=== PATIENT | female | born 2005 | race Two or more races ===

== ENCOUNTER → 2024-04-21 | Outpatient (CLI) | payer OTHER ==
[2024-04-21 11:53] LABS: Basophils # (auto) 0 10 ^3/uL (0-0.2); Eosinophils # (auto) 0.1 10 ^3/uL (0-0.8); Lymphocytes % (auto) 24.2 % (10.0-50.0); Platelet Count (auto) 187 10^3/uL (140-450)
[2024-04-21 11:55] LABS: Basophils % (auto) 0.2 % (0.0-2.0); Eosinophils % (auto) 0.6 % (0.0-7.0); Hematocrit 32.3 % (36.0-46.0); Hemoglobin 10.8 g/dL (12.2-16.2); Mean Corpuscular Hemoglobin 27.2 pg (28.0-32.0); Mean Corpuscular Hgb Conc. 33.3 g/dL (32.0-36.0); Mean Corpuscular Volume 81.8 fL (80.0-100.0); Monocytes # (auto) 0.4 10 ^3/uL (0-1.3); Monocytes % (auto) 4.7 % (0.0-12.0); Neutrophils # (auto) 5.9 10 ^3/uL (1.6-8.6); Neutrophils % (auto) 70.3 % (37.0-80.0); Nucleated Red Blood Cells % 0.1 %; Red Blood Cells 3.95 10^6/uL (4.0-5.20); Red Cell Distribution Width 14.6 % (11.8-14.3); White Blood Cell 8.3 10^3/uL (4.4-10.8)
[2024-04-21 12:16] LABS: Amphetamine Screen, Urine Neg (NEGATIVE); Barbiturate Scree,Urine Neg (NEGATIVE); Benzodiazephine Screen, Urine Neg (NEGATIVE)
[2024-04-21 12:17] LABS: Cocaine Screen, Urine Neg (NEGATIVE)
[2024-04-21 12:18] LABS: Cannabinoid Screen, Urine Pos (NEGATIVE); Opiate Scree,Urine Neg (NEGATIVE); Phencyclidine Screen, Urine Neg (NEGATIVE)
[2024-04-22 07:06] LABS: RPR Non Reactive (Non Reactive)
[2024-04-22 17:06] LABS: Chlamydia Trachomatis, NAA Negative (Negative); Neisseria gonorrhoeae, NAA Negative (Negative)
== END | disposition home or self-care (01) ==
LOC: LAB 11:09
PROVIDERS: ATTEND Obstetrics & Gynecology
DX: Z11.3 Encounter for screening for infections with a predominantly sexual mode of transmission (principal); N39.0 Urinary tract infection, site not specified
CPT/HCPCS: 36415; 80307; 83036; 84144; 84702; 85025; 86592; 86703; 86762; 86850; 86900; 86901; 87086; 87340

== ENCOUNTER → 2024-06-09 | Outpatient (CLI) | payer OTHER ==
[2024-06-09 08:43] LABS: Eosinophils # (auto) 0.3 10 ^3/uL (0-0.8); Eosinophils % (auto) 2.4 % (0.0-7.0); Hemoglobin 10.5 g/dL (12.2-16.2); Mean Corpuscular Volume 77.3 fL (80.0-100.0); Monocytes # (auto) 0.8 10 ^3/uL (0-1.3); Neutrophils # (auto) 8.4 10 ^3/uL (1.6-8.6); Nucleated Red Blood Cells % 0.1 %
[2024-06-09 08:44] LABS: Basophils # (auto) 0.1 10 ^3/uL (0-0.2); Basophils % (auto) 0.4 % (0.0-2.0); Hematocrit 32.6 % (36.0-46.0); Lymphocytes # (auto) 2.9 10 ^3/uL (0.4-5.4); Lymphocytes % (auto) 23.1 % (10.0-50.0); Mean Corpuscular Hemoglobin 24.9 pg (28.0-32.0); Mean Corpuscular Hgb Conc. 32.2 g/dL (32.0-36.0); Monocytes % (auto) 6.4 % (0.0-12.0); Neutrophils % (auto) 67.7 % (37.0-80.0); Platelet Count (auto) 163 10^3/uL (140-450); Red Blood Cells 4.22 10^6/uL (4.0-5.20); Red Cell Distribution Width 15.4 % (11.8-14.3); White Blood Cell 12.4 10^3/uL (4.4-10.8)
== END | disposition home or self-care (01) ==
LOC: LAB 07:50
PROVIDERS: ATTEND Obstetrics & Gynecology
DX: Z34.80 Encounter for supervision of other normal pregnancy, unspecified trimester (principal); Z3A.00 Weeks of gestation of pregnancy not specified
CPT/HCPCS: 36415; 82951; 83036; 85025

== ENCOUNTER → 2024-06-13 | Outpatient (CLI) | payer OTHER ==
[~2024-06-13] MED LIST: PREN-96 PO
[2024-06-13 11:23] LABS: Hemoglobin 10.7 g/dL (12.2-16.2); Mean Corpuscular Hemoglobin 25.2 pg (28.0-32.0)
[2024-06-13 11:24] LABS: Hematocrit 32.7 % (36.0-46.0); Mean Corpuscular Hgb Conc. 32.6 g/dL (32.0-36.0); Mean Corpuscular Volume 77.3 fL (80.0-100.0); Platelet Count (auto) 176 10^3/uL (140-450); Red Blood Cells 4.24 10^6/uL (4.0-5.20); Red Cell Distribution Width 15.6 % (11.8-14.3)
[2024-06-13 11:41] LABS: Band Neutrophils % (manual) 0; Basophils % (manual) 0 (0.0-2.0); Blast Cells 0; Myelocytes % 0; Promyelocytes % 0; Reactive Lymphocytes 0
[2024-06-13 12:23] LABS: Eosinophils % (manual) 1 (0-7); Lymphocytes % (manual) 20 (10.0-50.0); Metamyelocytes % 2; Monocytes % (manual) 6 (0-12); Platelet Estimate Adequate
[2024-06-14 07:06] LABS: RPR Non Reactive (Non Reactive)
[2024-06-15 01:06] LABS: Chlamydia Trachomatis, NAA Negative (Negative); Neisseria gonorrhoeae, NAA Negative (Negative)
== END | disposition home or self-care (01) ==
LOC: LAB 11:07
PROVIDERS: ATTEND Obstetrics & Gynecology
DX: Z34.00 Encounter for supervision of normal first pregnancy, unspecified trimester (principal); Z72.51 High risk heterosexual behavior; Z3A.00 Weeks of gestation of pregnancy not specified
CPT/HCPCS: 36415; 85007; 85027; 86592

== ENCOUNTER 2024-06-20 10:30 | Observation (INO) | payer OTHER ==
[2024-06-20] MEDS ORDERED: PREN-96 PO (10:45)
--- NOTE | 2024-06-20 11:47 | DVH ---
Procedure: US BIOPHYSICAL PROFILE 06/20/2024 11:09 AM Indication: GDM Comparison: None Technique: Sonogram of gravid uterus utilizing grayscale and color techniques. FINDINGS: Single living intrauterine gestation. Presentation: Cephalic Placenta: Anterior heart rate: 130 bpm MEENA: 16.9 cm, DVP: 5.5 cm Maternal cervix: Not visualized Biophysical Profile: breathing score: 2 movement score: 2 tone: 2 Quantitative MEENA score: 2 Total score: 8/8 IMPRESSION: 1. Single living as above. 2. Biophysical profile score: 8/8.
--- NOTE | 2024-06-20 17:49 | DVHDS2 ---
Physician Discharge Progress N Final Diagnosis: testing for GDM, A2 Operations or Procedures: Operations or Procedures 18yo IUP@36.1wks, +FM, denies UCs/VB/LOF/CAUSEY/vision changes/RUQ pain VSS NST reactive FKC/PTL/PreE precautions reviewed Other Interventions Other Interventions [place] [address] Ph: [phone] DIAGNOSTIC IMAGING Diagnostic Imaging Report : [id number] Signed PATIENT: ALMA ROSA ZAYAS ACCT: [id number] UNIT: [id number] : 2005 LOC: [facility] ROOM / BED: TRIAGE1 / A AGE / SEX: 18 / F ADM STATUS: ADM IN SERVICE 104 ORDERING PHYSICIAN: MICHELET BUCHANAN CNM PROCEDURE(s): BPP - BIOPHYSICAL PROFILE REASON: GDM ORDER NUMBER(s): [id number], ACCESSION NUMBER(s): [id number] Procedure: US BIOPHYSICAL PROFILE 06/20/2024 11:09 AM Indication: GDM Comparison: None Technique: Sonogram of gravid uterus utilizing grayscale and color techniques. FINDINGS: Single living intrauterine gestation. Presentation: Cephalic Placenta: Anterior heart rate: 130 bpm MEENA: 16.9 cm, DVP: 5.5 cm Maternal cervix: Not visualized Biophysical Profile: breathing score: 2 movement score: 2 tone: 2 Quantitative MEENA score: 2 Total score: 8/8 IMPRESSION: 1. Single living as above. 2. Biophysical profile score: 8/8. ATED BY: CLARA WU MD DICTATED DATE/TIME: 06/20/24 1145 SIGNED BY: CLARA WU MD SIGNED DATE/TIME: 06/20/24 114 CC: Condition on Discharge: Stable Disposition: Home Discharge Instructions: Diet: Consistent carbohydrate Activity: No Restrictions, As Tolerated Medications: see med list Follow Up Care: Specialist: f/u in 3 days Discharge Statement: "Patient was advised to return to the ER or call 911 if any headaches, dizziness, shortness of breath, chest pain, abdominal pain, bleeding, fevers, or worsening of medical condition. Patient was counseled about treatment plan, medications, possible side effects, patientverbalized understanding. All questions were answered to the best of my ability. This discharge took greater then 30 minutes in planning, reviewing documentation, counseling the patient, and discussing with other team members." Visit Coding OBGYN Date of Service: Jun 20, 2024 Billing Provider: MICHELET BUCHANAN CNM SMEARER Common Visit Codes: [id number] OBS CARE (HIGH) MICHELET BUCHANAN CNM Jun 20, 2024 17:49
== END 2024-06-20 12:47 | disposition home or self-care (01) ==
LOC: LDRP 10:30 → UNDOADMOB 10:30 → LDRP 10:44 → UNDODISOB 12:47
PROVIDERS: ADMIT Obstetrics & Gynecology; ATTEND Obstetrics & Gynecology
DX: O24.419 Gestational diabetes mellitus in pregnancy, unspecified control (principal); Z98.890 Other specified postprocedural states; Z79.899 Other long term (current) drug therapy; Z3A.36 36 weeks gestation of pregnancy
CPT/HCPCS: 59025; 76818; 81002; 82948; 82962; 94760; G0378

== ENCOUNTER 2024-06-23 10:07 | Observation (INO) | payer OTHER ==
--- NOTE | 2024-06-23 11:04 | DVH ---
BIOPHYSICAL PROFILE HISTORY: GDMA2 TECHNIQUE: Multiple transabdominal real-time grayscale sonographic images through the gravid uterus of the fetus with duplex Doppler color flow and M-mode spectral analysis FINDINGS: BIOPHYSICAL PROFILE: breathing score: 2 movement score: 2 tone score: 2 Quantitative MEENA score: 2 (MEENA: 17.2 Cm.) Total score: 8 The cervix not well visualized. Single live fetus in vertex presentation. heart rate 131 beats per minute. Anterior placenta without previa or abruption IMPRESSION: Biophysical profile score: 8
[2024-06-23] MEDS ORDERED: ACYC200C22 PO (11:19)
[2024-06-23] MEDS ORDERED: METF-370 PO (11:19)
--- NOTE | 2024-06-23 15:17 | DVHDS2 ---
Physician Discharge Progress N Final Diagnosis: GDMA2 Operations or Procedures: Operations or Procedures NST/BPP/MEENA Condition on Discharge: Stable Disposition: Home Discharge Instructions: Diet: Consistent carbohydrate Activity: No Restrictions, As Tolerated Follow Up/Referral: as scheduled Medications: No new meds Follow Up Care: Discharge Statement: "Patient was advised to return to the ER or call 911 if any headaches, dizziness, shortness of breath, chest pain, abdominal pain, bleeding, fevers, or worsening of medical condition. Patient was counseled about treatment plan, medications, possible side effects, patientverbalized understanding. All questions were answered to the best of my ability. This discharge took greater then 30 minutes in planning, reviewing documentation, counseling the patient, and discussing with other team members." Visit Coding OBGYN Date of Service: Jun 23, 2024 Billing Provider: SEEMA HAWKINS DO PUBLIC RELATIONS SENIOR ASSOCIATE Common Visit Codes: [id number]-WPU/OBS SAME DATE (MOD) PUBLIC RELATIONS SENIOR ASSOCIATE Procedure Codes: 71647-95- NON-STRESS TEST SEEMA HAWKINS DO Jun 23, 2024 15:17
== END 2024-06-23 11:27 | disposition home or self-care (01) ==
LOC: LDRP 10:07
PROVIDERS: ADMIT Obstetrics & Gynecology; ATTEND Obstetrics & Gynecology
DX: O24.419 Gestational diabetes mellitus in pregnancy, unspecified control (principal); Z3A.36 36 weeks gestation of pregnancy; Z79.899 Other long term (current) drug therapy; Z98.890 Other specified postprocedural states
CPT/HCPCS: 59025; 76818; 81002; 82948; 82962; 94760; G0378

== ENCOUNTER 2024-06-27 14:10 | Observation (INO) | payer OTHER ==
[~2024-06-27 14:10] MED LIST changes: +ACYC200C22 PO; +METF-370 PO
--- NOTE | 2024-06-27 15:37 | DVH ---
CLINICAL HISTORY: Gestational diabetes. COMPARISON: Prior BPP exam dated 06/23/2024. TECHNIQUE: biophysical profile was performed. Transabdominal sonographic images of the fetus we re obtained. FINDINGS: The fetus is in cephalic position. heart rate measures 146 BPM. Amniotic fluid index measures 18.1 cm. The placenta is anterior in position. BPP profile is an overall score of 8/8, with 2/2 points for breathing, with at least one episode of breathing over a 30 second duration during a 30 minute observation, 2/2 points for m ovements, with 3 or more discrete body or limb movements, 2/2 points for tone, with one or more episodes of extremity extension with return to flexion, or opening and closing of hand, and 2/ 2 points for amniotic fluid, with at least 1 pocket of amniotic fluid that measures 2 cm in 2 perpend icular planes. IMPRESSION: BPP score of 8/8.
--- NOTE | 2024-06-27 20:27 | DVHDS2 ---
Physician Discharge Progress N Final Diagnosis: testing for GDM, A2 Operations or Procedures: Operations or Procedures 18yo IUP@37.1WKS, +FM, denies UCs/LOF/VB VSS NST reactive FKC/labor precautions reviewed Dr. Antoine consulted, agrees with POC. Other Interventions Other Interventions [address] [address] Ph: [phone] DIAGNOSTIC IMAGING Diagnostic Imaging Report : [id number] Signed PATIENT: ALMA ROSA ZAYAS ACCT: [id number] UNIT: [id number] : 2005 LOC: [facility] ROOM / BED: TRIAGE2 / A AGE / SEX: 18 / F ADM STATUS: DIS IN SERVICE 142 ORDERING PHYSICIAN: MICHELET BUCHANAN CNM PROCEDURE(s): BPP - BIOPHYSICAL PROFILE REASON: GDMA1 ORDER NUMBER(s): [id number], ACCESSION NUMBER(s): [id number] CLINICAL HISTORY: Gestational diabetes. COMPARISON: Prior BPP exam dated 06/23/2024. TECHNIQUE: biophysical profile was performed. Transabdominal sonographic images of the fetus were obtained. FINDINGS: The fetus is in cephalic position. heart rate measures 146 BPM. Amniotic fluid index measures 18.1 cm. The placenta is anterior in position. BPP profile is an overall score of 8/8, with 2/2 points for breathing, with at least one episode of breathing over a 30 second duration during a 30 minute observation, 2/2 points for movements, with 3 or more discrete body or limb movements, 2/2 points for tone, with one or more episodes of extremity extension with return to flexion, or opening and closing of hand, and 2/2 points for amniotic fluid, with at least 1 pocket of amniotic fluid that measures 2 cm in 2 perpendicular planes. IMPRESSION: BPP score of 8/8. ATED BY: JANICE RAMESH DO DICTATED DATE/TIME: 06/27/241533 SIGNED BY: JANICE RAMESH DO SIGNED DATE/TIME: 06/27/241533 CC: Condition on Discharge: Stable Disposition: Home Discharge Instructions: Diet: Consistent carbohydrate Activity: No Restrictions, As Tolerated Medications: see med list Follow Up Care: Specialist: f/u in 3 days Discharge Statement: "Patient was advised to return to the ER or call 911 if any headaches, dizziness, shortness of breath, chest pain, abdominal pain, bleeding, fevers, or worsening of medical condition. Patient was counseled about treatment plan, medications, possible side effects, patientverbalized understanding. All questions were answered to the best of my ability. This discharge took greater then 30 minutes in planning, reviewing documentation, counseling the patient, and discussing with other team members." Visit Coding OBGYN Date of Service: Jun 27, 2024 Billing Provider: MICHELET BUCHANAN CNM CIRCULAR STUFFER Common Visit Codes: [id number] OBS CARE (HIGH) MICHELET BUCHANAN CNM Jun 27, 2024 20:27
== END 2024-06-27 15:26 | disposition home or self-care (01) ==
LOC: UNDOADMOB 14:10 → LDRP 14:10 → UNDODISOB 15:26
PROVIDERS: ADMIT Obstetrics & Gynecology; ATTEND Obstetrics & Gynecology
DX: O24.419 Gestational diabetes mellitus in pregnancy, unspecified control (principal); Z3A.37 37 weeks gestation of pregnancy; Z98.890 Other specified postprocedural states; Z79.899 Other long term (current) drug therapy
CPT/HCPCS: 59025; 76818; 81002; 82948; 82962; 94760; G0378

== ENCOUNTER 2024-06-30 07:00 | Observation (INO) | payer OTHER ==
--- NOTE | 2024-06-30 15:29 | DVH ---
Procedure: US BIOPHYSICAL PROFILE 06/30/2024 02:21 PM Indication: gdma2 Comparison: US BIOPHYSICAL PROFILE on DOS: 06/27/24, US BIOPHYSICAL PROFILE on DOS: 06/23/24, US BIOPHYS ICAL PROFILE on DOS: 06/20/24 Technique: Sonogram of gravid uterus utilizing grayscale and color techniques. FINDINGS: Single living intrauterine gestation. Presentation: Cephalic Placenta: Anterior heart rate: 140 bpm MEENA: 19.1 cm, DVP: 7.8 cm Maternal cervix: Not visualized Biophysical Profile: breathing score: 2 movement score: 2 tone: 2 Quantitative MEENA score: 2 Total score: 8/8 IMPRESSION: 1. Single living as above. 2. Biophysical profile score: 8/8.
--- NOTE | 2024-07-07 10:59 | DVHDS2 ---
Physician Discharge Progress N Final Diagnosis: gdm Operations or Procedures: Operations or Procedures nst,sono Condition on Discharge: Good Disposition: Home Discharge Instructions: Diet: Regular, Consistent carbohydrate Activity: No Restrictions, As Tolerated Medications: na Follow Up Care: Specialist: 3d Discharge Statement: "Patient was advised to return to the ER or call 911 if any headaches, dizziness, shortness of breath, chest pain, abdominal pain, bleeding, fevers, or worsening of medical condition. Patient was counseled about treatment plan, medications, possible side effects, patientverbalized understanding. All questions were answered to the best of my ability. This discharge took greater then 30 minutes in planning, reviewing document ation, counseling the patient, and discussing with other team members." Visit Coding OBGYN Date of Service: Jun 30, 2024 Billing Provider: HALEY TIPTON DO ELECTROMECHANICAL TECHNICIAN Common Visit Codes: [id number] INP/OBS CARE(MOD) ELECTROMECHANICAL TECHNICIAN Procedure Codes: 97155-37- NON-STRESS TEST HALEY TIPTON DO Jul 07, 2024 10:59
== END 2024-06-30 15:27 | disposition home or self-care (01) ==
LOC: LDRP 14:01
PROVIDERS: ADMIT Obstetrics & Gynecology; ATTEND Obstetrics & Gynecology
DX: O24.419 Gestational diabetes mellitus in pregnancy, unspecified control (principal); Z3A.37 37 weeks gestation of pregnancy; Z79.899 Other long term (current) drug therapy
CPT/HCPCS: 59025; 76818; 81002; 82948; 82962; 94760; G0378

== ENCOUNTER 2024-07-04 14:55 | Observation (INO) | payer OTHER ==
--- NOTE | 2024-07-04 15:52 | DVH ---
BIOPHYSICAL PROFILE HISTORY: gdma2 TECHNIQUE: Multiple transabdominal real-time grayscale sonographic images through the gravid uterus of the fetus with duplex Doppler color flow and M-mode spectral analysis FINDINGS: BIOPHYSICAL PROFILE: breathing score: 2 movement score: 2 tone score: 2 Quantitative MEENA score: 2 (MEENA: 15.8 Cm.) Total score: 8/8 The cervix not measured Single live fetus in cephalic presentation. heart rate 144 beats per minute. Anterior Grade 3 placenta without previa or abruption Single live fetus at 30 weeks 1 day Biophysical profile score 8/8 corresponding to an DIAN of 07/17/2024 Estimated weight not measured g IMPRESSION: 1. Biophysical profile score: 8/8
--- NOTE | 2024-07-04 19:57 | DVHDS2 ---
Physician Discharge Progress N Final Diagnosis: testing for GDM, A2 Operations or Procedures: Operations or Procedures 18yo IUP@38.1wks, +FM, denies UCs/LOF/VB VSS NST reactive BPP wnl FKC/Labor precautions reviewed Condition on Discharge: Stable Disposition: Home Discharge Instructions: Diet: Consistent carbohydrate Activity: No Restrictions, As Tolerated Medications: see med list Follow Up Care: Specialist: f/u in 3 days Discharge Statement: "Patient was advised to return to the ER or call 911 if any headaches, dizziness, shortness of breath, chest pain, abdominal pain, bleeding, fevers, or worsening of medical condition. Patient was counseled about treatment plan, medications, possible side effects, patientverbalized understanding. All questions were answered to the best of my ability. This discharge took greater then 30 minutes in planning, reviewing doc umentation, counseling the patient, and discussing with other team members." Visit Coding OBGYN Date of Service: Jul 04, 2024 Billing Provider: MICHELET BUCHANAN CNM ECOTHERAPIST Common Visit Codes: [id number] OBS CARE (HIGH) ECOTHERAPIST Procedure Codes: 93564-69- NON-STRESS TEST MICHELET BUCHANAN CNM Jul 04, 2024 19:57
== END 2024-07-04 16:16 | disposition home or self-care (01) ==
LOC: LDRP 14:55
PROVIDERS: ADMIT Obstetrics & Gynecology; ATTEND Obstetrics & Gynecology
DX: O24.419 Gestational diabetes mellitus in pregnancy, unspecified control (principal); Z98.890 Other specified postprocedural states; Z79.899 Other long term (current) drug therapy; Z3A.38 38 weeks gestation of pregnancy
CPT/HCPCS: 59025; 76818; 81002; 82948; 82962; 94760; G0378

== ENCOUNTER 2024-07-07 06:55 | Observation (INO) | payer OTHER ==
--- NOTE | 2024-07-07 10:11 | DVH ---
CLINICAL HISTORY: Gestational diabetes. COMPARISON: US BIOPHYSICAL PROFILE on DOS: 07/04/24, US BIOPHYSICAL PROFILE on DOS: 06/30/24, US BIOPHY SICAL PROFILE on DOS: 06/27/24 TECHNIQUE: biophysical profile was performed. Transabdominal sonographic images of the fetus we re obtained. FINDINGS: The fetus is in cephalic position. heart rate measures 130 BPM. Amniotic fluid index measures 18.3 cm. The placenta is anterior in position. BPP profile is an overall score of 8/8, with 2/2 points for breathing, with at least one episode of breathing over a 30 second duration during a 30 minute observation, 2/2 points for m ovements, with 3 or more discrete body or limb movements, 2/2 points for tone, with one or more episodes of extremity extension with return to flexion, or opening and closing of hand, and 2/ 2 points for amniotic fluid, with at least 1 pocket of amniotic fluid that measures 2 cm in 2 perpend icular planes. IMPRESSION: BPP score of 8/8.
--- NOTE | 2024-07-07 11:01 | DVHDS2 ---
Physician Discharge Progress N Final Diagnosis: gdm 38wks Operations or Procedures: Operations or Procedures simeon cao 38wks Condition on Discharge: Good Disposition: Home Discharge Instructions: Diet: Consistent carbohydrate Activity: Light activity Medications: na Follow Up Care: Specialist: 5d Discharge Statement: "Patient was advised to return to the ER or call 911 if any headaches, dizziness, shortness of breath, chest pain, abdominal pain, bleeding, fevers, or worsening of medical condition. Patient was counseled about treatment plan, medications, possible side effects, patientverbalized understanding. All questions were answered to the best of my ability. This discharge took greater then 30 minutes in planning, reviewing documentation, counseling the patient, and discussing with other team members." Visit Coding OBGYN Date of Service: Jul 07, 2024 Billing Provider: HALEY TIPTON DO TAG PRESS OPERATOR Common Visit Codes: [id number] INP/OBS CARE(MOD), 03633-LZF/OBS SAME DATE (MOD) HALEY TIPTON DO Jul 07, 2024 11:01
== END 2024-07-07 10:32 | disposition home or self-care (01) ==
LOC: LDRP 09:13
PROVIDERS: ADMIT Obstetrics & Gynecology; ATTEND Obstetrics & Gynecology
DX: O24.419 Gestational diabetes mellitus in pregnancy, unspecified control (principal); Z3A.38 38 weeks gestation of pregnancy; Z79.899 Other long term (current) drug therapy; Z98.890 Other specified postprocedural states
CPT/HCPCS: 59025; 76818; 81002; 82948; 82962; 94760; G0378

== ENCOUNTER 2024-07-11 06:50 | Observation (INO) | payer OTHER ==
--- NOTE | 2024-07-11 13:44 | DVH ---
BIOPHYSICAL PROFILE HISTORY: GDMA1 Comparison Study: 07/07/2024 TECHNIQUE: Multiple real-time grayscale sonographic images through the gravid uterus of the fetus wi th duplex Doppler color flow and M-mode spectral analysis FINDINGS: BIOPHYSICAL PROFILE: breathing score: 2 movement score: 2 tone score: 2 Quantitative MEENA score: 2 (MEENA: 14.8 Cm.) Total score: 8 The cervix is not visualized Single live fetus in cephalic presentation. heart rate 138 beats per minute. Anterior placenta without previa or abruption IMPRESSION: Biophysical profile score: 8
--- NOTE | 2024-07-11 19:59 | DVHDS2 ---
Physician Discharge Progress N Final Diagnosis: testing for GDM, A1/A2 Operations or Procedures: Operations or Procedures 18yo IUP@39.1wks, +FM, denies UCs/LOF/VB/CAUSEY/vision changes/RUQ pain NST reactive (verified by 2 RNs) VSS, see chart SVE by RN: /-3 FKC/PTL/PreE precautions reviewed Dr. Antoine consulted, plan is to scheduled pt for IOL tonight for GDM. Other Interventions Other Interventions [place] [address] Ph: [phone] DIAGNOSTIC IMAGING Diagnostic Imaging Report : [id number] Signed PATIENT: ALMA ROSA ZAYAS ACCT: [id number] UNIT: [id number] : 2005 LOC: [facility] ROOM / BED: TRIAGE3 / A AGE / SEX: 18 / F ADM STATUS: ADM IN SERVICE 1235 ORDERING PHYSICIAN: MICHELET BUCHANAN CNM PROCEDURE(s): BPP - BIOPHYSICAL PROFILE REASON: GDMA1 ORDER NUMBER(s): [id number], ACCESSION NUMBER(s): [id number] BIOPHYSICAL PROFILE HISTORY: GDMA1 Comparison Study: 07/07/2024 TECHNIQUE: Multiple real-time grayscale sonographic images through the gravid uterus of the fetus with duplex Doppler color flow and M-mode spectral analysis FINDINGS: BIOPHYSICAL PROFILE: breathing score: 2 movement score: 2 tone score: 2 Quantitative MEENA score: 2 (MEENA: 14.8 Cm.) Total score: 8 The cervix is not visualized Single live fetus in cephalic presentation. heart rate 138 beats per minute. Anterior placenta without previa or abruption IMPRESSION: Biophysical profile score: 8 ATED BY: KEITH PARSONS MD DICTATED DATE/TIME: 07/11/24 134 SIGNED BY: KEITH PARSONS MD SIGNED DATE/TIME: 07/11/24 134 CC: Condition on Discharge: Stable Disposition: Home Discharge Instructions: Diet: Consistent carbohydrate Activity: No Restrictions, As Tolerated Follow Up/Referral: as scheduled. Medications: See med list Follow Up Care: Specialist: f/u tonight for IOL Discharge Statement: "Patient was advised to return to the ER or call 911 if any headaches, dizzine ss, shortness of breath, chest pain, abdominal pain, bleeding, fevers, or worsening of medical condition. Patient was counseled about treatment plan, medications, possible side effects, patientverbalized understanding. All questions were answered to the best of my ability. This discharge took greater then 30 minutes in planning, reviewing documentation, counseling the patient, and discussing with other team members." Visit Coding OBGYN Date of Service: Jul 11, 2024 Billing Provider: MICHELET BUCHANAN CNM [place] BAILIFF Common Visit Codes: [id number] OBS CARE (HIGH) MICHELET BUCHANAN CNM Jul 11, 2024 19:59
== END 2024-07-11 14:06 | disposition home or self-care (01) ==
LOC: LDRP 12:08
PROVIDERS: ADMIT Obstetrics & Gynecology; ATTEND Obstetrics & Gynecology
DX: O24.419 Gestational diabetes mellitus in pregnancy, unspecified control (principal); Z3A.39 39 weeks gestation of pregnancy; Z79.899 Other long term (current) drug therapy
CPT/HCPCS: 76818; 81002; 82948; 82962; 94760; G0378; 59025; 76819

== ENCOUNTER 2024-07-11 21:07 | Inpatient (IN) | payer OTHER ==
[~2024-07-11] VITALS: Ht 157.5 cm; Wt 101.2 kg
[2024-07-11] MEDS ORDERED: NALBUPHINE HCL 10 MG/1ml INJECTION IV PRN (21:30)
[2024-07-11] MEDS ORDERED: LIDOCAINE 2%HCL (LOCAL ANESTH.) INJ 20ML MDV IJ PRN (21:30)
[2024-07-11 22:34] LABS: Eosinophils # (auto) 0.1 10 ^3/uL (0-0.8); Lymphocytes # (auto) 3.3 10 ^3/uL (0.4-5.4); Mean Corpuscular Hemoglobin 23.9 pg (28.0-32.0); Mean Corpuscular Hgb Conc. 32.4 g/dL (32.0-36.0); Mean Corpuscular Volume 73.7 fL (80.0-100.0); Monocytes # (auto) 0.6 10 ^3/uL (0-1.3); Neutrophils # (auto) 7.3 10 ^3/uL (1.6-8.6); Red Cell Distribution Width 16.6 % (11.8-14.3)
[2024-07-11 22:35] LABS: Basophils # (auto) 0 10 ^3/uL (0-0.2); Basophils % (auto) 0.4 % (0.0-2.0); Eosinophils % (auto) 0.5 % (0.0-7.0); Hemoglobin 9.4 g/dL (12.2-16.2); Lymphocytes % (auto) 29.4 % (10.0-50.0); Monocytes % (auto) 5.7 % (0.0-12.0); Platelet Count (auto) 190 10^3/uL (140-450); Red Blood Cells 3.94 10^6/uL (4.0-5.20); White Blood Cell 11.4 10^3/uL (4.4-10.8)
[2024-07-11 22:48] LABS: INR 0.92 (0.9-1.15); Prothrombin Time 9.8 sec (9.3-11.8)
[2024-07-11] MEDS ORDERED: miSOPROStol 50 MCG per PRE-CUT 1/2 TAB PO PRN (23:00)
[2024-07-11 23:05] LABS: Albumin 3.9 g/dL (3.2-4.8); Anion Gap 9 (5-15); BUN/Creatinine Ratio 16.4 (10.0-20.0); Bilirubin, Total 0.4 mg/dL (0.2-1.0); Blood Urea Nitrogen 11 mg/dL (9-23); Calcium 9.2 mg/dL (8.7-10.4); Carbon Dioxide 23 mmol/L (20-31); Chloride 106 mmol/L (98-107); Glucose 88 mg/dL (74-106); Sodium 138 mmol/L (136-145); Total Protein 6.1 g/dL (5.7-8.2)
[2024-07-11 23:06] LABS: Alanine Aminotransferase < 9 U/L (7-40); Alkaline Phosphatase 171 U/L (46-116); Aspartate Aminotransferase < 8 U/L (13-40); Potassium 3.5 mmol/L (3.5-5.1)
[2024-07-11] MEDS: LACTATED RINGER'S 1,000 ML IV SCH (23:06)
[2024-07-11 23:46] LABS: Cannabinoid Screen, Urine Pos (NEGATIVE)
[2024-07-11 23:47] LABS: Urine Bacteria FEW /hpf (None Seen); Urine Blood Negative /uL (Negative); Urine Clarity Clear (Clear); Urine Color Yellow (Yellow); Urine Mucus FEW (None Seen); Urine Protein, UAD 1+ (Negative); Urine Squamous Epithelial Cell MOD /hpf (<5); Urine Urobilinogen 2 mg/dL (Negative); Urine WBC 2 /HPF (0-5); Urine pH 6.5 (5.0-9.0)
[2024-07-11 23:49] LABS: Amphetamine Screen, Urine Neg (NEGATIVE); Barbiturate Scree,Urine Neg (NEGATIVE); Benzodiazephine Screen, Urine Neg (NEGATIVE); Cocaine Screen, Urine Neg (NEGATIVE); Opiate Scree,Urine Neg (NEGATIVE); Phencyclidine Screen, Urine Neg (NEGATIVE)
--- NOTE | 2024-07-11 23:49 | DVHHP2 ---
OB CC & HPI Date Date of Admission: Jul 11, 2024 Patient Identification: EDC: Jul 17, 2024 EGA: 39.1wks Chief Complaints: Reason for admission: induction of labor (GDM) History of Present Complaints 18yo IUP@39.1wks presents for scheduled IOL for GDMA2/A1. Pt reports being prescribed metformin making her GDMA2 but never took the meds. Then managed BG with diet/exercise so was told to not take metformin. Denies UCs/LOF/VB/CAUSEY/vision changes/RUQ pain. Endorses +FM. PNC: Started at [place] then transferred to [facility] OB with Dr. Antoine, adequate visits, PNC complicated by iron deficiency anemia and +THC. 2hr GTT ordered (FBS 112 so the rest of the GTT was cancelled), dating based on LMP c/w 22wk sono at [facility], GBS positive. OB hx: x1, uncomplicated in 2023 Past Medical History Cardiac: No pertinent Hx Pulmonary: No pertinent Hx Central Nervous System: No pertinent Hx GI: No pertinent Hx Hemotology/Oncology: No pertinent Hx Hepatobiliary: No pertinent Hx Psychiatric: No pertinent Hx Musculoskeletal: No pertinent Hx Rheumotologic: No pertinent Hx Infectious Disease: Herpes simplex 2 ENT: No pertinent Hx Renal/: No pertinent Hx Endocrine: No pertinent Hx Dermatology: No pertinent Hx Past Surgical History: No pertinent Hx OB History OB History Care: Good Care Ultrasounds: Normal mid trimester US Obstetrical Complications: Gestational Diabetes Medical Complications: None Allergies: Coded Allergies: NO KNOWN ALLERGIES (Unverified , 07/11/24) Home Meds Reported Medications Acyclovir (Acyclovir) 200 Mg Cap, 800 MG PO DAILY, TAB 06/23/24 Vit W/ Ferrous Fumara ( One Daily) Daily Tab, 1 TAB PO DAILY, #90 TAB 3 Refills 06/20/24 Discontinued Reported Medications Metformin Hydrochloride (Metformin Hcl) 500 Mg Tab, 500 MG PO DAILY for 30 Days, MG 06/23/24 Current Medications Current Medications Medications (Trade) Dose Ordered Sig/Violet Route PRN Reason Start Time Stop Time Status Last Admin Lactated Ringer's 1,000 ml @ 125 mls/hr Q8H IV 07/11/24 21:30 07/11/24 23:06 Nalbuphine HCl (Nubain) 10 mg Q4HP PRN IV MODERATE PAIN (4-6 PAIN SCALE) 07/11/24 21:30 Penicillin G Potassium [id number] units/Dextrose 50 ml @ 100 mls/hr Q4H IV 07/12/24 01:30 Diagnostic Test (Pha) (Accu-Chek Comfort Curve T) 1 strip Q4HR 07/11/24 22:00 Witch Lois (Tucks) 1 pad PRN PRN TOP PERINEAL AREA DISCOMFORT 07/11/24 21:30 Sodium Lauryl Sulfate (Phisoderm) 240 ml PRN PRN TOP PERINEAL AREA DISCOMFORT 07/11/24 21:30 Benzocaine (Dermoplast) 1 applic PRN PRN TOP PERINEAL AREA DISCOMFORT 07/11/24 21:30 Lidocaine HCl (Xylocaine) 40 ml ONCE PRN IJ PERINEAL AREA DISCOMFORT 07/11/24 21:30 Misoprostol (Cytotec) 50 mcg Q4HPRN PRN PO CERVICAL RIPENING 07/11/24 23:00 Misoprostol (Cytotec) 50 mcg Q4HPRN PRN PO CERVICAL RIPENING 07/11/24 23:15 OB Admission Exam Physical Exam Vitals: VSS, see chart EFW in office today was 7lbs 2oz/vertex HEENT: TMs Normal, Fontanelles Normal, Nasal Mucosa Normal, Eyes non-injected, Oropharynx Normal, PERRLA, Moist Membranes, EOMI Heart: Rhythm Normal Lungs: Clear Abdomen: Gravid Extremities: Normal Reflexes: Normal Pelvic Exam: no active HSV lesions noted Cervical Dilatation: 1cm Effacement: Other (60) Station: -3 Membranes: Intact Heart Rate: 130's Accelerations: Accelerations Present Decelerations: No Decelerations Retirement Variability: Average (6-25) Contractions on Admission: None OB Plan Plan Admitting Diagnosis: Induction of Labor for GDM Plan: Induction Induction Methd: Misoprostol protocol Other Plan: A: 18yo IUP@39.1wks Induction of Labor for GDM Category I EFM Intact Membranes GBS positive P: Admit to L&D Informed consent obtained Discussed risks, benefits, alternatives of IOL for GDM with pt. Pt consents to IOL with PO cytotec. Start IV PCN for GBS treatment when in active labor or ROM. Blood glucose checks q4hrs then q2hrs in active labor. monitoring per order Routine labs ordered Pain mgmt PRN Frequent position changes in and out of bed encouraged Limit SVE unless necessary Intrauterine resuscitation PRN Anticipate MARNIE is co-managing care with Dr. Antoine. Visit Coding OBGYN Date of Service: Jul 11, 2024 Billing Provider: MICHELET BUCHANAN CNM MEMBERSHIP ASSISTANT Common Visit Codes: [id number] INP/OBS CARE (HIGH) MICHELET BUCHANAN CNM Jul 11, 2024 23:49
[2024-07-12] MEDS: PHISODERM TOP SOLN 240ML BTL TOP PRN (00:11)
[2024-07-12] MEDS: WITCH HAZEL-GLYCERIN PAD TOP PRN (00:11)
[2024-07-12] MEDS: miSOPROStol 50 MCG per PRE-CUT 1/2 TAB PO PRN (00:11)
[2024-07-12] MEDS: DERMOPLAST 60ML BOTTLE TOP PRN (00:11)
[2024-07-12] MEDS: ACCU-CHEK COMFORT CURVE STRIP VI SCH (01:06)
[2024-07-12] MEDS ORDERED: PENICILLIN G POTASSIUM 2,500,000 UNITS in D5W 5% 50 ML IV SCH ×2 (01:30→13:30)
--- NOTE | 2024-07-12 07:04 | DVHPN2 ---
Chief Complaints Patient reports: No new complaints Nursing reports: No new complaints Objective Medications Current Medications Medications (Trade) Dose Ordered Sig/Violet Route PRN Reason Start Time Stop Time Status Last Admin Benzocaine (Dermoplast) 1 applic PRN PRN TOP PERINEAL AREA DISCOMFORT 07/11/24 21:30 07/12/24 00:11 Diagnostic Test (Pha) (Accu-Chek Comfort Curve T) 1 strip Q4HR 07/11/24 22:00 07/12/24 04:57 Lactated Ringer's 1,000 ml @ 125 mls/hr Q8H IV 07/11/24 21:30 07/12/24 05:43 Lidocaine HCl (Xylocaine) 40 ml ONCE PRN IJ PERINEAL AREA DISCOMFORT 07/11/24 21:30 Misoprostol (Cytotec) 50 mcg Q4HPRN PRN PO CERVICAL RIPENING 07/11/24 23:00 Cancel Misoprostol (Cytotec) 50 mcg Q4HPRN PRN PO CERVICAL RIPENING 07/11/24 23:15 07/12/24 04:08 Nalbuphine HCl (Nubain) 10 mg Q4HP PRN IV MODERATE PAIN (4-6 PAIN SCALE) 07/11/24 21:30 Penicillin G Potassium [id number] units/Dextrose 50 ml @ 100 mls/hr Q4H IV 07/12/24 13:30 Sodium Lauryl Sulfate (Phisoderm) 240 ml PRN PRN TOP PERINEAL AREA DISCOMFORT 07/11/24 21:30 07/12/24 00:11 Witch Lois (Tucks) 1 pad PRN PRN TOP PERINEAL AREA DISCOMFORT 07/11/24 21:30 07/12/24 00:11 Others ve-1cm/60/-2 Studies Laboratory Tests 07/11/24 20:20 Test 07/11/24 20:20 Range/Units Serum Glucose 88 74-106 mg/dL Ass/Plan Assessment iol Plan rec 2 cytotec supportive care Visit Coding OBGYN Date of Service: Jul 12, 2024 Billing Provider: HALEY TIPTON DO MARINE ENGINE MACHINIST Common Visit Codes: [id number] INP/OBS CARE(HIGH) HALEY TIPTON DO Jul 12, 2024 07:04
[2024-07-12] MEDS ORDERED: NALOXONE HCL 0.4 MG/ML VIAL IV ONE (10:00)
[2024-07-12] MEDS ORDERED: ePHEDrine SULFATE 50 MG/ML AMP IV ONE (10:00)
[2024-07-12] MEDS: LIDOCAINE HCL 2 %PF INJ 10ML AMP IJ ONE (10:00)
[2024-07-12] MEDS: LIDOCAINE 1%-Mpf/Epinephrine 1:200,000 30ml VIAL IJ ONE (10:00)
[2024-07-12] MEDS ORDERED: TERBUTALINE SULFATE 1 MG/ML 1ML VIAL SC PRN (10:00)
[2024-07-12] MEDS: LACT. RINGERS/OXYTOCIN 20UNITS 1,000 ML IV SCH (10:48)
[2024-07-12] MEDS: ROPIVACAINE HCL 200 ML ONE (10:49)
[2024-07-12] MEDS: PENICILLIN G POT 5MIL/D5 50ML 50 ML IV ONE (11:25)
[2024-07-12] MEDS ORDERED: PENICILLIN G POT 5MIL/D5 50ML 50 ML IV ONE (13:00)
--- NOTE | 2024-07-12 13:04 | DVHPN2 ---
Chief Complaints Patient reports: No new complaints Nursing reports: No new complaints Objective Medications Current Medications Medications (Trade) Dose Ordered Sig/Violet Route PRN Reason Start Time Stop Time Status Last Admin Benzocaine (Dermoplast) 1 applic PRN PRN TOP PERINEAL AREA DISCOMFORT 07/11/24 21:30 07/12/24 00:11 Diagnostic Test (Pha) (Accu-Chek Comfort Curve T) 1 strip Q4HR 07/11/24 22:00 07/12/24 04:57 Lactated Ringer's 1,000 ml @ 125 mls/hr Q8H IV 07/11/24 21:30 07/12/24 05:43 Lidocaine HCl (Xylocaine) 40 ml ONCE PRN IJ PERINEAL AREA DISCOMFORT 07/11/24 21:30 Misoprostol (Cytotec) 50 mcg Q4HPRN PRN PO CERVICAL RIPENING 07/11/24 23:00 Cancel Misoprostol (Cytotec) 50 mcg Q4HPRN PRN PO CERVICAL RIPENING 07/11/24 23:15 07/12/24 04:08 Nalbuphine HCl (Nubain) 10 mg Q4HP PRN IV MODERATE PAIN (4-6 PAIN SCALE) 07/11/24 21:30 Oxytocin 1,000 ml @ 6 ml/hr Q24H IV 07/12/24 10:00 07/12/24 10:48 Penicillin G Potassium [id number] units/Dextrose 50 ml @ 100 mls/hr Q4H IV 07/12/24 13:30 Sodium Lauryl Sulfate (Phisoderm) 240 ml PRN PRN TOP PERINEAL AREA DISCOMFORT 07/11/24 21:30 07/12/24 00:11 Terbutaline Sulfate (Brethine Inj) 0.25 mg ONCE PRN SC Uterine tachysystole 07/12/24 10:00 Witch Lois (Tucks) 1 pad PRN PRN TOP PERINEAL AREA DISCOMFORT 07/11/24 21:30 07/12/24 00:11 Others ve- 4-5/75/-2 Studies Laboratory Tests 07/11/24 20:20 Test 07/11/24 20:20 Range/Units Serum Glucose 88 74-106 mg/dL Ass/Plan Assessment iol Plan recieved epidural cont with pitocin Visit Coding OBGYN Date of Service: Jul 12, 2024 Billing Provider: HALEY TIPTON DO RESOURCING CONSULTANT Common Visit Codes: [id number] INP/OBS CARE(HIGH) HALEY TIPTON DO Jul 12, 2024 13:04
[2024-07-12] MEDS ORDERED: ONDANSETRON ODT 4 MG TAB PO PRN (15:45)
[2024-07-12] MEDS ORDERED: ACETAMINOPHEN 325 MG TAB PO PRN (15:45)
--- NOTE | 2024-07-12 16:33 | LDN2 ---
Labor and Delivery Note Date 07/12/24 Age 18 3 Para 2 AB 1 EDC 07/17/2024 EGA 39.2 Diagnosis IOL for GDM then Vaginal Delivery: VTX Vacuum Assisted: No Placenta: Spontaneous Sex: Male Weight pending Apgars 8/8 Nuchal Cord Transected: No Amniotic Fluid: Clear Anesthesia Epidural Episiotomy: No Extension: No Repaired with N/A EBL total QBL:1556 mL Labs Laboratory Tests 04/21/24 11:25: Hepatitis B Surface Antigen Negative, HIV (1&2) Antibody Negative, Rubella Antibody Positive Blood Bank 07/11/24 20:20: Blood Type A POSITIVE Complications PPH: CNM called to bedside to assess lochia. Methergine given by RN Fundus at U, midline. Firm to massage. VSS. Patient denies dizziness, wants pain meds prior to manual sweep. Straight cath done with 150 mL of urine expelled. Fentanyl 100 mcg IV push, Hemabate, Lomotil, Zofran, TXA given by RN. Manual sweep done, uterus cleared of all clots by A Anjali DYE. Bi-manual compression done for boggy lower uterine segment. Second dose of Hemabate and Ancef 2G IVPB x1 and stat CBC/coags ordered. Fundus at U. Firm. Midline. VSS. QBL:[address] Antoine consulted, agrees with POC. Conditions Stable Emissions Testing And Repair Technician Dr. Mcneill Comments/Significant Med Darshan At 1522 this 18yo now delivered a viable Male infant by w/ APGARS 8/8. JANELLE. placed skin to skin on pts chest. Cord clamped and cut after pulsation ceased. Intact 3-vessel cord placenta delivered spontaneously, Melvin. Pitocin IV bolus started. Placenta sent to pathology. Patient had epidural. Cervix/vagina inspected (intact) and left labial abrasion present, hemostatic, no repair required. Fundus at U, firm, midline, and light lochia. QBL 400ml. VSS. Count correct x2. Patient to care and baby to couplet care, both stable. Visit Coding OBGYN Date of Service: Jul 12, 2024 Billing Provider: MICHELET BUCHANAN CNM NEEDLE LOOM WEAVER Common Visit Codes: [id number] INP/OBS CARE(HIGH) NEEDLE LOOM WEAVER Procedure Codes: 42145-09- NON-STRESS TEST, [id number] DEL INCLUDING LUCY MCCOY STDT MDWF Jul 12, 2024 16:33
[2024-07-12] MEDS: IBUPROFEN 600 MG TAB PO PRN (17:07)
[2024-07-12] MEDS: METHYLERGONOVINE MALEATE 0.2 MG/ML AMP IM ONE (17:30)
[2024-07-12] MEDS ORDERED: METHYLERGONOVINE MALEATE 0.2 MG/ML AMP IM PRN (17:30)
[2024-07-12] MEDS: fentaNYL CITRATE 100 MCG/2 ML VL IV ONE (17:42)
[2024-07-12] MEDS ORDERED: DIPHENOXYLATE W/ATROPINE 2.5 MG TAB ONE (17:49)
[2024-07-12] MEDS: ONDANSETRON HCL 4 MG/2 ML VIAL ONE (17:53)
[2024-07-12] MEDS: fentaNYL CITRATE 100 MCG/2 ML VL ONE (17:54)
[2024-07-12] MEDS: LACT. RINGERS/OXYTOCIN 20UNITS 500 ML IV ONE ×2 (17:55→17:56)
[2024-07-12] MEDS ORDERED: CARBOPROST TROMETHAMINE 250 MCG/1ML VIAL IM ONE ×2 (17:59→18:01)
[2024-07-12] MEDS ORDERED: ceFAZolin 2 GM/D5W50ml 50 ML IV ONE ×2 (18:00→18:01)
[2024-07-12 18:45] VITALS: BP 134/72; PULSE 70; RESP 20; TEMP 97.7; O2SAT 96
[2024-07-12 19:11] LABS: Basophils # (auto) 0 10 ^3/uL (0-0.2); Basophils % (auto) 0.1 % (0.0-2.0); Eosinophils # (auto) 0 10 ^3/uL (0-0.8); Eosinophils % (auto) 0.1 % (0.0-7.0); Hematocrit 27.8 % (36.0-46.0); Hemoglobin 8.9 g/dL (12.2-16.2); Lymphocytes # (auto) 2.3 10 ^3/uL (0.4-5.4); Lymphocytes % (auto) 12.5 % (10.0-50.0); Mean Corpuscular Hemoglobin 23.5 pg (28.0-32.0); Mean Corpuscular Hgb Conc. 32.1 g/dL (32.0-36.0); Mean Corpuscular Volume 73.2 fL (80.0-100.0); Monocytes # (auto) 0.7 10 ^3/uL (0-1.3); Monocytes % (auto) 3.7 % (0.0-12.0); Neutrophils # (auto) 15.3 10 ^3/uL (1.6-8.6); Neutrophils % (auto) 83.6 % (37.0-80.0); Platelet Count (auto) 168 10^3/uL (140-450); Red Blood Cells 3.79 10^6/uL (4.0-5.20); Red Cell Distribution Width 16.4 % (11.8-14.3); White Blood Cell 18.3 10^3/uL (4.4-10.8)
[2024-07-12 19:31] LABS: INR 0.92 (0.9-1.15); Partial Thromboplastin Time 25.6 SEC (24.5-34.5); Prothrombin Time 9.8 sec (9.3-11.8)
[2024-07-12] MEDS ORDERED: AMMONIA 0.33 ML INHALANT IN ONE (19:56)
[2024-07-12] MEDS: DOCUSATE SOD 100 MG CAP PO SCH (21:58)
[2024-07-12 22:45] VITALS: BP 108/61; PULSE 67; RESP 18; TEMP 98.1; O2SAT 98
--- NOTE | 2024-07-13 00:03 | DVHPN2 ---
Progress Note Date Seen: Jul 13, 2024 Subjective S: bleeding is less, eating food without issues, denies lightheaded/dizziness, pain well controlled with oral medications, no concerns with urinating, passing flatus, no BM yet, ambulating well, well vital signs Vital Sign Date Time Temp Pulse Resp B/P (MAP) Pulse Ox O2 Delivery O2 Flow Rate FiO2 07/12/24 22:45 98.1 67 18 108/61 (77) 98 98.1 07/12/24 20:00 Room Air Total Intake and Output 07/12/24 07/12/24 07/13/24 15:00 23:00 07:00 Output Total 850 ml Balance -850 ml medications Current Medications Medications Dose Ordered Sig/Violet Route Start Time Stop Time Status Last Admin Dose Admin Lactated Ringer's 1,000 ml @ 125 mls/hr Q8H IV 07/11/24 21:30 07/12/24 18:44 125 MLS/HR Nalbuphine HCl 10 mg Q4HP PRN IV 07/11/24 21:30 Cancel Witch Lois 1 pad PRN PRN TOP 07/11/24 21:30 07/12/24 00:11 1 PAD Sodium Lauryl Sulfate 240 ml PRN PRN TOP 07/11/24 21:30 07/12/24 00:11 240 ML Benzocaine 1 applic PRN PRN TOP 07/11/24 21:30 07/12/24 00:11 1 APPLIC Lidocaine HCl 40 ml ONCE PRN IJ 07/11/24 21:30 Cancel Misoprostol 50 mcg Q4HPRN PRN PO 07/11/24 23:00 Cancel Penicillin G Potassium [id number] units/Dextrose 50 ml @ 100 mls/hr Q4H IV 07/12/24 13:30 Cancel Oxytocin 1,000 ml @ 6 ml/hr Q24H IV 07/12/24 10:00 07/12/24 10:48 3 ML/HR Terbutaline Sulfate 0.25 mg ONCE PRN SC 07/12/24 10:00 Cancel Ibuprofen 600 mg Q6HP PRN PO 07/12/24 15:45 07/12/24 17:07 600 MG Acetaminophen 650 mg Q4HP PRN PO 07/12/24 15:45 Ondansetron HCl 4 mg Q4HPRN PRN PO 07/12/24 15:45 Docusate Sodium 200 mg HS PO 07/12/24 22:00 07/12/24 21:58 200 MG Methylergonovine Maleate 0.2 mg Q8HP PRN IM 07/12/24 17:30 07/14/24 17:29 Cefazolin Sodium 50 ml @ 100 mls/hr Q8HR IV 07/13/24 02:00 laboratory and microbiology Laboratory Tests 07/12/24 18:52 07/11/24 20:20 Test 07/11/24 20:20 Range/Units Serum Glucose 88 74-106 mg/dL Objective O: VSS Chest: heart sounds normal and lung sounds clear bilaterally Abd: soft, non-tender, fundus at U/firm/midline, active bowel sounds, no rebound or guarding Perineum: intact Ext: Non-tender, No edema, 2+ BLE DTRs Lochia: minimal See lab results Problems(with codes): (1) (normal spontaneous vaginal delivery) (2) Intact perineum (3) PPH ( hemorrhage) (4) Iron deficiency anemia of mother during Assessment/Plan A/P: 18yo now PPD#1 s/p -Continue routine PP care and monitoring lochia Plan discussed with: Patient, Other Visit Coding OBGYN Date of Service: Jul 13, 2024 Billing Provider: MICHELET BUCHANAN CNM UMBRELLA MENDER Common Visit Codes: [id number] INP/OBS CARE(HIGH) LUCY MCCOY MDWF Jul 13, 2024 00:03
--- NOTE | 2024-07-13 00:07 | DVHDS2 ---
Obstetrics Discharge Summary Obstetrics Discharge Summary Date of Admission: Jul 11, 2024 Date of Discharge: Jul 13, 2024 Reason For Admission: Induction of Labor (GDM) Procedures: NST, Ultrasound Intrapartum Procedures: Spontaneous vaginal deliv Procedures: Antibiotics, Hct/date: (07/12/2024), Hgb/date: (07/12/2024) Operative Complicat: Hemorrhage (Uterine) Discharge Diagnosis: Term -Delivered Discharge Information: Activity (as tolerated, no heavy lifting and nothing in the vagina for 6 weeks), Diet (Routine), Medications (rx sent), Instructions (Routine), Discharge to (Home), Accompanied by (mother), Discarge date (07/13/24) Visit Coding OBGYN Date of Service: Jul 13, 2024 Billing Provider: MICHELET BUCHANAN CNM PREPARATION PLANT REPAIRER Common Visit Codes: 96351-TSA/OBS DISCH DAY <30MIN LUCY MCCOY MDWF Jul 13, 2024 00:07
[2024-07-13] MEDS ORDERED: ceFAZolin 1GM/50ML 50 ML IV SCH (02:00)
[2024-07-13 03:10] VITALS: BP 110/69; PULSE 70; RESP 18; TEMP 97.7; O2SAT 98
[2024-07-13 06:55] VITALS: BP 104/47; PULSE 73; RESP 16; TEMP 98; O2SAT 98
[2024-07-13 08:07] LABS: RPR Non Reactive (Non Reactive)
[2024-07-13 08:18] LABS: Basophils # (auto) 0 10 ^3/uL (0-0.2); Basophils % (auto) 0.4 % (0.0-2.0); Eosinophils # (auto) 0.1 10 ^3/uL (0-0.8); Eosinophils % (auto) 0.7 % (0.0-7.0); Hematocrit 23.4 % (36.0-46.0); Hemoglobin 7.3 g/dL (12.2-16.2); Lymphocytes # (auto) 3.4 10 ^3/uL (0.4-5.4); Lymphocytes % (auto) 27.6 % (10.0-50.0); Mean Corpuscular Hgb Conc. 31.1 g/dL (32.0-36.0); Mean Corpuscular Volume 73.9 fL (80.0-100.0); Monocytes # (auto) 0.7 10 ^3/uL (0-1.3); Monocytes % (auto) 5.5 % (0.0-12.0); Neutrophils # (auto) 8.1 10 ^3/uL (1.6-8.6); Neutrophils % (auto) 65.8 % (37.0-80.0); Nucleated Red Blood Cells % 0.1 %; Platelet Count (auto) 154 10^3/uL (140-450); Red Blood Cells 3.17 10^6/uL (4.0-5.20); Red Cell Distribution Width 16.5 % (11.8-14.3); White Blood Cell 12.3 10^3/uL (4.4-10.8)
[2024-07-13 08:32] LABS: INR 0.91 (0.9-1.15); Partial Thromboplastin Time 26.7 SEC (24.5-34.5); Prothrombin Time 9.7 sec (9.3-11.8)
[2024-07-13 11:00] VITALS: BP 116/60; PULSE 86; RESP 16; TEMP 98.3; O2SAT 99
[2024-07-13] MEDS: FERROUS SULFATE 325mg EC TAB PO SCH (11:00)
[2024-07-13] MEDS: FERROUS SULFATE 325mg EC TAB PO ONE (11:00)
[2024-07-13 15:07] VITALS: BP 109/72; PULSE 79; RESP 20; TEMP 97.9; O2SAT 99
[2024-07-13 19:30] VITALS: BP 113/65; PULSE 65; RESP 18; TEMP 98.6; O2SAT 98
[2024-07-13] MEDS: IRON SUCROSE COMPLEX 110 ML IV ONE (20:24)
[2024-07-13 23:00] VITALS: BP 120/60; PULSE 68; RESP 18; TEMP 98; O2SAT 99
[2024-07-14 03:00] VITALS: BP 101/65; PULSE 60; RESP 18; TEMP 98.4; O2SAT 100
--- NOTE | 2024-07-14 04:07 | DVHDS2 ---
Obstetrics Discharge Summary Obstetrics Discharge Summary Date of Admission: Jul 11, 2024 Date of Discharge: Jul 14, 2024 Reason For Admission: Induction of Labor Procedures: Mgmt of Obstetrics Compli Intrapartum Procedures: Spontaneous vaginal deliv Procedures: None Operative Complicat: Hemorrhage (PPH) Discharge Diagnosis: Term -Delivered Discharge Information: Activity (Pelvic rest), Diet (Regular), Medications (Motrin, Colace, Iron supplement, vits), Instructions (Routine), Discharge to (Home) Visit Coding OBGYN Date of Service: Jul 14, 2024 Billing Provider: SATISH DALY CNM SPECIAL PROJECTS MANAGER Common Visit Codes: 36146-EIO/OBS DISCH DAY <30MIN SATISH DALY CNM Jul 14, 2024 04:07
--- NOTE | 2024-07-14 04:10 | DVHPN2 ---
Chief Complaints Patient reports: No new complaints (Coping well. Denies any sx. Ambulates and voids freely. No syncope/dizziness. Denies blues. Desires to go home) Nursing reports: No new complaints Objective Vitals Vital Signs Date Time Temp Pulse Resp B/P (MAP) Pulse Ox O2 Delivery O2 Flow Rate FiO2 07/14/24 03:00 98.4 60 18 101/65 (77) 100 98.4 07/13/24 19:30 Room Air Medications Current Medications Medications (Trade) Dose Ordered Sig/Violet Route PRN Reason Start Time Stop Time Status Last Admin Ferrous Sulfate 325 mg DAILY@1000 PO 07/15/24 10:00 General: Normal Lungs: Normal, Normal breath sounds, Lungs clear Cardiovascular: Normal, Regular rate and rhythm Abdominal: Normal (Fundus fir, 2fb below umbilicus, non tender) Musculoskeletal: Normal Extremities: Normal (Joanne's neg) Skin: Normal Others Breasts soft, nipples intact Perineum without edema, lochia minimal, no odor Studies Laboratory Tests 07/13/24 07:56 07/11/24 20:20 Test 07/11/24 20:20 Range/Units Serum Glucose 88 74-106 mg/dL Ass/Plan Assessment 2nd PP day PP anemia Desires to go home Plan D/c home with instructions Iron infusion before d/c RTC 2 weeks and PRN SATISH DALY CNM Jul 14, 2024 04:10
[2024-07-14 07:00] VITALS: BP 108/57; PULSE 84; RESP 16; TEMP 97.5; O2SAT 98
[2024-07-14 11:00] VITALS: BP 137/58; PULSE 73; RESP 14; TEMP 97.6; O2SAT 99
[2024-07-14] MEDS ORDERED: IRON SUCROSE COMPLEX 110 ML IV ONE (17:00)
[2024-07-15] MEDS ORDERED: FERROUS SULFATE 325mg EC TAB PO SCH (10:00)
== END 2024-07-14 14:25 | disposition home or self-care (01) | DRG 806 ==
LOC: LDRP 21:07
PROVIDERS: ADMIT Obstetrics & Gynecology; ATTEND Obstetrics & Gynecology
PROC: 10E0XZZ Delivery of Products of Conception, External Approach (ICD-10-PCS; principal; 2024-07-12)
PROC: 3E0DXGC Introduction of Other Therapeutic Substance into Mouth and Pharynx, External Approach (ICD-10-PCS; 2024-07-12)
PROC: 3E0R3BZ Introduction of Anesthetic Agent into Spinal Canal, Percutaneous Approach (ICD-10-PCS; 2024-07-12)
PROC: 00HU33Z Insertion of Infusion Device into Spinal Canal, Percutaneous Approach (ICD-10-PCS; 2024-07-12)
DX: O24.429 Gestational diabetes mellitus in childbirth, unspecified control (principal); O72.1 Other immediate postpartum hemorrhage; Z37.0 Single live birth; Z3A.39 39 weeks gestation of pregnancy; O99.824 Streptococcus B carrier state complicating childbirth; O90.81 Anemia of the puerperium
CPT/HCPCS: 36415; 59025; 59409; 62282; 80053; 80307; 81001; 81002; 82962; 85025; 85610; 85730; 86592; 86780; 86803; 86850; 86900; 86901; 94760; 96361; 96365; 96366; 96372; G0378; J1756; J2405; J2540; J2590; J7060